=== PATIENT | male | born 1945 | race African-American/Black ===

== ENCOUNTER 2017-02-26 07:33 | Emergency (ER) | payer MEDICARE, OTHER ==
[2017-02-26 09:01] LABS: ALT (SGPT) 14 U/L (0-55); AST (SGOT) 14 U/L (5-34); Albumin 3.7 g/dL (3.4-4.8); Alkaline Phosphatase 90 U/L (40-150); Anion Gap 13 mmol/L (10-20); BUN (Urea Nitrogen) 20 mg/dL (8.4-25.7); Bilirubin, Total 0.5 mg/dL (0.2-1.2); Calc. Creatinine Clearance 0 mL/min (70-130); Calcium 8.8 mg/dL (7.8-10.44); Carbon Dioxide 22 mmol/L (23-31); Chloride 109 mmol/L (98-107); Estimated GFR-MDRD 80; Globulin 2.7 g/dL (2.4-3.5); Glucose 118 mg/dL (80-115); Potassium 3.6 mmol/L (3.5-5.1); Protein, Total 6.4 g/dL (5.8-8.1); Sodium 140 mmol/L (136-145)
[2017-02-26 09:06] LABS: Hemoglobin 12.4 g/dL (14.0-18.0); Mean Corpuscular HGB CONC 33.2 g/dL (32.0-36.0); Mean Corpuscular Hemoglobin 33.5 pg (27.0-31.0); Mean Corpuscular Volume 100.8 fl (80.0-94.0); Mean Platelet Volume 9.4 fL (7.4-10.4); Platelet Count 151 thou/uL (130-400); RBC Distribution Width 11.7 % (11.5-14.5); Red Blood Cell (RBC) Count 3.69 mill/uL (4.70-6.10); White Blood Cell (WBC) Count 3.9 thou/uL (4.8-10.8)
[2017-02-26 09:06] LABS: Bilirubin Negative (Negative); Blood, Urine Negative (Negative); Clarity Clear (Clear); Glucose, Urine (Dipstick) Negative (Negative); Leukocyte Negative (Negative); Nitrite Negative (Negative); Protein, Urine (Dipstick) Negative (Neg-Trace); Specific Gravity, Urine 1.025 (1.005-1.030); Urobilinogen 0.2 mg/dL (0.2-1.0)
[2017-02-26 09:12] LABS: Hemoglobin A1c 4.9 % (4.0-6.0)
[2017-02-26 09:12] LABS: Bacteria/HPF Rare-Few HPF (None Seen); Crystals/HPF 1+ AMORPH PHOS HPF (Negative); Other Microscopic Description C&S SET UP; RBC/HPF 0-3 HPF (0-3); Squamous Epithelial 0-3 HPF (0-3); WBC/HPF None Seen HPF (0-3)
[2017-02-26 09:19] LABS: Band 1 % (5-11); Lymphocytes 37 % (21-51); MDiff Complete? YES; Manual Diff?? YES; Monocytes 5 % (0-10); Neutrophil 55 % (42-75)
[2017-02-26 09:20] LABS: Eosinophils 2 % (0-10)
--- NOTE | 2017-02-26 10:57 | RAD ---
AP VIEW OF CHEST: Date: 02/26/17 INDICATION: Cough. COMPARISON: None. FINDINGS: There are low lung volumes. There is accentuation of the cardiac silhouette and pulmonary vasculatur e. No definite pleural effusion or pneumothorax evident. No acute osseous abnormality is evident. IMPRESSION: Low lung volumes. POS: [facility]
== END 2017-02-26 10:28 | disposition home or self-care (01) ==
LOC: MADERS 07:33
DX: D64.9 Anemia, unspecified (principal); F79 Unspecified intellectual disabilities; Z79.899 Other long term (current) drug therapy
CPT/HCPCS: 36415; 71010; 80053; 81003; 81015; 83036; 83880; 85025; 87086; 93005; 94760

== ENCOUNTER 2018-01-18 07:41 | Emergency (ER) | payer MEDICARE, MEDICAID ==
[2018-01-18 08:03] LABS: Bilirubin Small (Negative); Blood, Urine Negative (Negative); Clarity Slightly Cloudy (Clear); Glucose, Urine (Dipstick) Negative (Negative); Leukocyte Small (Negative); Nitrite Negative (Negative); Protein, Urine (Dipstick) 30 mg/dL (Neg-Trace); Specific Gravity, Urine 1.031 (1.002-1.036)
[2018-01-18 08:04] LABS: Bacteria/HPF 3+ HPF (None Seen); RBC/HPF 0-3 HPF (0-3); Squamous Epithelial 0-3 HPF (0-3); WBC/HPF 21-50 HPF (0-3)
[2018-01-18] MEDS ORDERED: Ciprofloxacin 500 MG TAB ONE (08:15)
[2018-01-18] MEDS ORDERED: methylPREDNISolone Sod Succ/PF 125 MG/2 ML VIAL ONE (15:38)
== END 2018-01-18 08:25 | disposition home or self-care (01) ==
LOC: MADERS 07:41
DX: N39.0 Urinary tract infection, site not specified (principal)
CPT/HCPCS: 81003; 81015; 87086; 99283; J2930

== ENCOUNTER 2018-08-07 17:41 | Emergency (ER) | payer MEDICARE, MEDICAID ==
[~2018-08-07 17:41] MED LIST: Iopamidol 370 76% 100 ML VIAL ONE; Sodium Chloride 0.9% 1,000 ML BAG ONE
[2018-08-07] MEDS ORDERED: Famotidine In NaCl 20 mg/50 ml Premix Bag ONE (18:34)
[2018-08-07] MEDS ORDERED: Ondansetron HCl/PF 4 MG/2 ML Vial ONE (18:34)
[2018-08-07 18:43] LABS: #Lymphocytes 0.9 thou/uL (1.20-3.40); #Monocytes 0.5 thou/uL (0.11-0.59); #Neutrophils 3.8 thou/uL (1.40-6.50); %Basophils 0.9 % (0.0-1.0); %Eosinophils 0.1 % (0.0-10.0); %Lymphocytes 17.3 % (21.0-51.0); %Monocytes 10.2 % (0.0-10.0); %Neutrophils 71.6 % (42.0-75.0); Mean Corpuscular HGB CONC 32.5 g/dL (32.0-36.0); Mean Corpuscular Hemoglobin 31.8 pg (27.0-31.0); Mean Corpuscular Volume 97.9 fL (78.0-98.0); Mean Platelet Volume 8.7 fL (7.4-10.4); Platelet Count 238 thou/uL (130-400); RBC Distribution Width 11.4 % (11.5-14.5); Red Blood Cell (RBC) Count 4.71 mill/uL (4.70-6.10); White Blood Cell (WBC) Count 5.3 thou/uL (4.8-10.8)
[2018-08-07 18:51] LABS: Anion Gap 19 mmol/L (10-20); BUN (Urea Nitrogen) 52 mg/dL (8.4-25.7); Calc. Creatinine Clearance 0 mL/min (70-130); Calcium 9.2 mg/dL (7.8-10.44); Carbon Dioxide 23 mmol/L (23-31); Chloride 98 mmol/L (98-107); Estimated GFR-MDRD 58; Glucose 143 mg/dL (83-110); Potassium 4.1 mmol/L (3.5-5.1); Sodium 136 mmol/L (136-145)
[2018-08-07 18:55] LABS: Troponin I Less than 0.010 ng/mL (< 0.028)
--- NOTE | 2018-08-07 20:37 | CT ---
CT ABDOMEN AND PELVIS WITH CONTRAST: TECHNIQUE: IV contrast was given. Unfortunately, oral contrast was not given, as the patient was not able to to lerate oral contrast. FINDINGS: Contrast enhanced CT images of the abdomen and pelvis demonstrate some areas of atelectasis and patch y pneumonia in both lung bases. No evidence of free intraperitoneal air is seen. The liver and sple en are unremarkable. The gallbladder is unremarkable. The pancreas is unremarkable. There is exten sive small bowel dilatation. The distal most aspect of the terminal ileum is of normal caliber. The duodenum and proximal jejunum are also of normal caliber; however, the more distal jejunum and all t he ileum is markedly distended. Findings are concerning for bowel obstruction, with the transition p oint appearing to be in the jejunum (axial image 47 and coronal images 38 and 39). A large amount of stool is seen in the colon, in the proximal and mid portions. The more distal aspect of the colon i s of a more normal caliber. An enlarged prostate gland is also seen. IMPRESSION: Areas of extensive mid small bowel dilatation, concerning for bowel obstruction. POS: [facility]
[2018-08-07] MEDS ORDERED: cefTRIAXone\\ROCEPHIN 1 GM VIAL ONE (20:44)
== END 2018-08-07 21:42 | disposition short-term general hospital (02) ==
LOC: MADERS 17:41
DX: K56.609 Unspecified intestinal obstruction, unspecified as to partial versus complete obstruction (principal); J18.9 Pneumonia, unspecified organism
CPT/HCPCS: 74177; 80048; 82150; 82553; 84484; 85025; 93005; 96365; 96375; J0696; J2405; J7050

== ENCOUNTER 2019-10-13 16:10 | Outpatient (CLI) | payer MEDICARE | END 2019-10-13 16:11 | disposition home or self-care (01) | LOC: MADLAB 16:10 | PROVIDERS: ATTEND Family Medicine | DX: R68.83 Chills (without fever) (principal) | CPT/HCPCS: 87804 ==

== ENCOUNTER 2020-02-11 17:16 | Emergency (ER) | payer MEDICARE, MEDICAID ==
[2020-02-11 18:30] LABS: Anisocytosis SLIGHT = 6-15 cells (100X) (0-5/hpf); Band 11 % (5-11); Hemoglobin 12.6 g/dL (14.0-18.0); Hypochromia SLIGHT = 6-15 cells (100X) (0-5/hpf); Lymphocytes 23 % (21-51); MDiff Complete? YES; Mean Corpuscular HGB CONC 31.4 g/dL (32.0-36.0); Mean Corpuscular Volume 98.7 fL (78.0-98.0); Mean Platelet Volume 9.2 fL (7.4-10.4); Monocytes 2 % (0-10); Neutrophil 64 % (42-75); Platelet Count 171 thou/uL (130-400); Platelet Morphology Comment Appears Adequate; RBC Distribution Width 11.2 % (11.5-14.5); Red Blood Cell (RBC) Count 4.05 mill/uL (4.70-6.10)
[2020-02-11 18:32] LABS: ALT (SGPT) 39 U/L (8-55); AST (SGOT) 32 U/L (5-34); Albumin 3.5 g/dL (3.4-4.8); Alkaline Phosphatase 85 U/L (40-110); Anion Gap 14 mmol/L (10-20); BUN (Urea Nitrogen) 18 mg/dL (8.4-25.7); Bilirubin, Total 0.8 mg/dL (0.2-1.2); Calc. Creatinine Clearance 0 mL/min (70-130); Calcium 8.4 mg/dL (7.8-10.44); Carbon Dioxide 27 mmol/L (23-31); Chloride 101 mmol/L (98-107); Estimated GFR-MDRD 78; Globulin 3.2 g/dL (2.4-3.5); Glucose 106 mg/dL (83-110); Potassium 3.2 mmol/L (3.5-5.1); Protein, Total 6.7 g/dL (5.8-8.1); Sodium 139 mmol/L (136-145)
[2020-02-11 19:10] LABS: Bilirubin Negative (Negative); Blood, Urine Trace (Negative); Clarity Cloudy (Clear); Glucose, Urine (Dipstick) Negative (Negative); Leukocyte Large (Negative); Nitrite Negative (Negative); Protein, Urine (Dipstick) 100 mg/dL (Neg-Trace); Urobilinogen 0.2 mg/dL (Less than 2)
[2020-02-11 19:17] LABS: Bacteria/HPF 4+ HPF (None Seen); RBC/HPF 0-3 HPF (0-3); Squamous Epithelial None Seen HPF (0-3); WBC/HPF Greater than 50 HPF (0-3)
[2020-02-11] MEDS ORDERED: Sulfameth/Trimethoprim DS 800-160mg TAB ONE (19:24)
== END 2020-02-11 21:11 ==
LOC: MADERS 17:16
DX: N39.0 Urinary tract infection, site not specified (principal); Z79.899 Other long term (current) drug therapy
CPT/HCPCS: 36415; 51701; 80053; 81003; 81015; 83605; 85025; 87040; 87081; 87430; 87804

== ENCOUNTER 2020-03-24 02:34 | Emergency (ER) | payer MEDICARE, MEDICAID ==
[2020-03-24 03:24] LABS: #Basophils 0.1 thou/uL (0.0-0.2); #Eosinphils 0.1 thou/uL (0.0-0.7); #Lymphocytes 2.5 thou/uL (1.20-3.40); #Monocytes 0.5 thou/uL (0.11-0.59); %Basophils 1.4 % (0.0-1.0); %Eosinophils 2.4 % (0.0-10.0); %Lymphocytes 48.1 % (21.0-51.0); %Monocytes 9.3 % (0.0-10.0); %Neutrophils 38.8 % (42.0-75.0); Hemoglobin 12.9 g/dL (14.0-18.0); Mean Corpuscular HGB CONC 32.4 g/dL (32.0-36.0); Mean Corpuscular Volume 98.9 fL (78.0-98.0); Mean Platelet Volume 8.6 fL (7.4-10.4); Platelet Count 178 thou/uL (130-400); RBC Distribution Width 11.7 % (11.5-14.5); Red Blood Cell (RBC) Count 4.03 mill/uL (4.70-6.10); White Blood Cell (WBC) Count 5.1 thou/uL (4.8-10.8)
[2020-03-24 03:45] LABS: ALT (SGPT) 11 U/L (8-55); AST (SGOT) 13 U/L (5-34); Albumin 4.1 g/dL (3.4-4.8); Alkaline Phosphatase 77 U/L (40-110); Anion Gap 14 mmol/L (10-20); BUN (Urea Nitrogen) 20 mg/dL (8.4-25.7); Bilirubin, Total 0.5 mg/dL (0.2-1.2); CK (CPK) 72 U/L (30-200); CKMB 1.7 ng/mL (0-6.6); Calc. Creatinine Clearance 0 mL/min (70-130); Calcium 8.7 mg/dL (7.8-10.44); Carbon Dioxide 26 mmol/L (23-31); Chloride 104 mmol/L (98-107); Estimated GFR-MDRD Greater than 90; Globulin 3.2 g/dL (2.4-3.5); Glucose 103 mg/dL (83-110); Lipase 18 U/L (8-78); Potassium 3.7 mmol/L (3.5-5.1); Protein, Total 7.3 g/dL (5.8-8.1); Sodium 140 mmol/L (136-145)
[2020-03-24] MEDS ORDERED: Aspirin 325 MG TAB ONE (03:57)
[2020-03-24] MEDS ORDERED: Aspirin Chewable 81 MG TAB ONE (03:59)
--- NOTE | 2020-03-24 07:36 | RAD ---
Exam: Chest one view HISTORY:Chest pain. Colon cancer. Comparison: 08/13/2018 FINDINGS: Cardiac silhouette: Normal Aorta: Unremarkable Pulmonary vessels: Normal Costophrenic angles: Clear LUNGS: No masses or consolidation. Pneumothorax: None Osseous abnormalities: None IMPRESSION: No acute cardiopulmonary process.
== END 2020-03-24 06:28 ==
LOC: MADERS 02:34
DX: R07.89 Other chest pain (principal); I89.0 Lymphedema, not elsewhere classified; Z79.899 Other long term (current) drug therapy
CPT/HCPCS: 71045; 80053; 82150; 82550; 82553; 83690; 84484; 85025; 93005; 94760